=== PATIENT | male | born 1950 | race Caucasian/White ===

== ENCOUNTER → 2020-10-13 15:53 | Outpatient (CLI) | payer MEDICARE, SELFPAY ==
[2020-10-13 16:38] LABS: Add Manual Diff / Slide Review NO; Basophils Absolute Auto 0 /uL (0-100); Basophils Percent Auto 0.4 % (0-2); Eosinophils Absolute Auto 100 /uL (0-450); Eosinophils Percent Auto 0.5 % (2-4); Hematocrit 43.1 % (41-53); Hemoglobin 14.6 g/dL (13.5-17.5); Lymphocytes Absolute Auto 2600 /uL (1100-4500); Lymphocytes Percent Auto 26.7 % (25-40); Mean Corpuscular HGB Conc 33.9 % (30-36); Mean Corpuscular Hemoglobin 31.5 PG (26-34); Mean Corpuscular Volume 92.9 fL (80-100); Monocytes Absolute Auto 900 /uL (0-900); Monocytes Percent Auto 9.3 % (3-14); Neutrophils Absolute Auto 6000 /uL (1500-7000); Neutrophils Percent Auto 63.1 % (50-75); Platelet Count 290 X10^3/uL (150-400); Red Blood Cell Count 4.64 X10^6/uL (4.5-5.9); Red Cell Distribution Width 13.7 % (11.6-14.8); White Blood Cell Count 9.6 X10^3/uL (4.5-11.0)
[2020-10-13 16:46] LABS: Alanine Aminotransferase 31 IU/L (<50); Albumin 4.4 g/dL (3.5-5.0); Albumin Globulin Ratio 1.4 (1.0-2.8); Alkaline Phosphatase 83 U/L (38-126); Aspartate Aminotransferase 25 IU/L (17-59); BUN Creatinine Ratio 13.9 (6-22); Bilirubin Total 0.4 mg/dL (0.2-1.3); Blood Urea Nitrogen 14 mg/dL (9-20); Calcium 9.4 mg/dL (8.4-10.2); Carbon Dioxide 27 mmol/L (22-32); Chloride 103 mmol/L (98-107); Cholesterol 255 mg/dL (140-199); Estimated Glomerular Filt Rate > 60.0 mL/min (>60); Globulin 3.2 g/dL (1.7-4.1); Glucose 99 mg/dL (80-110); HDL Cholesterol 55 mg/dL (40-60); HEMOLYSIS < 15 (0-50); LDL Cholesterol Calculated 167 mg/dL (<100); Potassium 3.3 mmol/L (3.4-5.1); Sodium 136 mmol/L (137-145); Total Protein 7.6 g/dL (6.3-8.2); Triglycerides 163 mg/dL (35-150)
[2020-10-13 16:49] LABS: C-Reactive Protein Quant < 0.5 mg/dL (<1.0)
[2020-10-13 17:08] LABS: Erythrocyte Sedimentation Rate 1 MM/HR (0-15)
== END ==
PROVIDERS: PCP Internal Medicine; Referring Provider Internal Medicine; Visit Provider Internal Medicine
DX: E78.2 Mixed hyperlipidemia (principal); I10 Essential (primary) hypertension
CPT/HCPCS: 36415; 80053; 80061; 85025; 85651; 86140

== ENCOUNTER 2020-10-25 14:41 | Emergency (ER) | payer MEDICARE, SELFPAY ==
[2020-10-25] VITALS (9 sets, daily range): BP systolic 140–163; BP diastolic 83–87; PULSE 87–95; RESP 16–22; TEMP 36.8; O2SAT 91–96; BMI 30.7
--- NOTE | 2020-10-25 14:58 | DI.RAD.S_ITS ---
PROCEDURE: XR CHEST 2V INDICATIONS: shortness of breath TECHNIQUE: 2 views of the chest were acquired. COMPARISON: None. FINDINGS: Overlying EKG wires. Surgical changes and devices: None. Lungs and pleura: There are slightly low lung volumes causing prominence of the bronchovascular markings. No focal consolidation, pneumothorax, or pleural effusion. Mediastinum: Mediastinal contours are normal. Heart size is normal. Bones and chest wall: No suspicious bony abnormalities. Soft tissues appear unremarkable. IMPRESSION: Slight hypoinflation without other evidence to suggest an acute cardiopulmonary abnormality. Dictated by: Santiago Frias D.O. on 10/25/2020 at 14:21 Approved by: Santiago Frias D.O. on 10/25/2020 at 14:22
--- NOTE | 2020-10-25 15:13 | ED_ITS ---
HPI - SOB/Dyspnea General Chief Complaint: Shortness of Breath/Dyspnea Stated Complaint: SOB, Cough, Bloated, Weak Time Seen by Provider: 10/25/20 14:59 Source: patient Mode of arrival: Ambulatory Limitations: no limitations History of Present Illness HPI Narrative: Patient is a 70-year-old male with history of bipolar, depression, anxiety, hypertension who presents with shortness of breath. He states he has had shortness of breath and cough ongoing for number of weeks it seems to be worse when he is lying down. He feels like it was much worse last night. He does not need to sleep sitting up or with significant number of pillows. He does have some shortness of breath with exertion. He has also had slight productive cough. He denies any recent travel no exposure to COVID he says he just goes to the grocery store. He was kind enough to bring in pictures of his sputum which he took under his microscope. He has not had any fever or chills. Related Data Home Medications Medication Instructions Recorded Confirmed atorvastatin 20 mg tablet 20 mg PO DAILY 09/01/20 10/13/20 bupropion HCl 450 mg 24 hr tablet, 450 mg PO DAILY 09/01/20 10/13/20 extended release finasteride 5 mg tablet 5 mg PO DAILY 09/01/20 10/13/20 hydrochlorothiazide 25 mg tablet 25 mg PO DAILY 09/01/20 10/13/20 lamotrigine 200 mg tablet 400 mg PO DAILY 09/01/20 10/13/20 Previous Rx's Medication Instructions Recorded lorazepam 2 mg tablet 4 mg PO BEDTIME #60 tab 10/06/20 amlodipine 10 mg tablet 10 mg PO DAILY #30 tab 10/13/20 potassium chloride 10 mEq 10 meq PO DAILY #90 tab 10/14/20 tablet,extended release Allergies Allergy/AdvReac Type Severity Reaction Status Date / Time No Known Drug Allergies Allergy Verified 10/13/20 15:31 Review of Systems Review of Systems ROS Unobtainable: All systems reviewed & are unremarkable except as noted in HPI and below Constitutional Constitutional: Denies chills, Denies fever(s), Denies frequent falls, Denies lethargy and Denies weakness Cardiovascular Cardiovascular: Denies chest pain, Denies syncope, Denies pedal edema, Denies edema, Denies irregular heart rhythm, Denies leg edema, Denies lightheadedness, Denies palpitations and Denies orthopnea Respiratory Respiratory: Reports as per HPI Gastrointestinal Gastrointestinal: Denies abdominal pain, Denies change in bowel habits, Denies diarrhea, Denies nausea and Denies vomiting Musculoskeletal Musculoskeletal: Denies back pain and Denies myalgias Integumentary/Breasts Skin/Breast: Denies pruritus, Denies erythema, Denies rash and Denies wounds Neurologic Neurologic: Denies syncope, Denies frequent falls and Denies weakness Endocrine Endocrine: Denies palpitations Patient History Medical History Depression (~2003) Essential hypertension (~1999) Generalized anxiety disorder (~2003) Mixed hyperlipidemia PTSD (post-traumatic stress disorder) (~2003) Skin cancer (~1999) TIA (transient ischemic attack) (~2016) Surgical History Anesthesia S/P Achilles tendon repair (~1997) S/P appy (~1974) S/P tonsillectomy Family History Father Cancer Mother Multiple organ failure Social History Smoking Status: Never smoker Smoking Status: Never smoker alcohol intake frequency: 0-2 drinks per day Substance Use Type: does not use Exam Initial Vital Signs Initial Vital Signs: Vital Signs Blood Pressure 160/85 H 10/25/20 14:54 GENERAL: Flat affect, seems depressed HEENT: Head atraumatic,EOMI, pupils reactive, face symmetric, [moist] mucous membranes CARDIOVASCULAR: Regular rate and rhythm without murmurs, rubs or gallops. RESPIRATORY: Breath sounds equal bilaterally, no wheezes rales or rhonchi. Speaks in full sentences no sign of respiratory distress ABDOMEN: Soft, nontender. Normoactive bowel sounds all 4 quadrants. No guarding or rebound. EXTREMITIES: Normal range of motion, no clubbing or edema. Neurovascularly intact NEUROLOGICAL: Alert and oriented x4.Normal gait and speech. SKIN: Warm, dry, no laceration, no petechiae, no rashes or lesions. Course Orders Ordered: ED Orders 10/25/20 10:45 D Dimer Stat 10/25/20 14:57 COVID19 Stat Complete Blood Count AUTO DIFF Stat Comprehensive Metabolic Panel Stat Lactate (Lactic Acid) Stat NT-proBNP (BNP-Adult 18+) Stat Troponin & CK Cardiac Panel Stat 10/25/20 14:58 XR chest 2V Stat EKG-12 Lead Stat Measure peak expiratory flow ONCE RT Consult Eval and Treat Now Discontinued Medications Albuterol (Albuterol Hfa Prepack) 1 box MISC SEEINSTR ONE Stop: 10/25/20 16:00 Last Admin: 10/25/20 16:11 Dose: 1 box Documented by: SHAHNAZ Vital Signs Vital signs: Vital Signs - 8 hr 10/25/20 14:54 10/25/20 14:55 10/25/20 14:56 Temperature 98.2 F Pulse Rate 90 93 H Respiratory Rate 19 16 Blood Pressure 160/85 H 160/85 H Pulse Oximetry 95 96 10/25/20 15:00 10/25/20 15:30 10/25/20 16:00 Temperature Pulse Rate 93 H 88 88 Respiratory Rate 22 16 16 Blood Pressure 163/87 H Pulse Oximetry 93 93 93 10/25/20 16:18 10/25/20 16:30 Temperature Pulse Rate 87 Respiratory Rate 16 Blood Pressure Pulse Oximetry 96 91 MDM - SOB/Dyspnea Lab Data Attestation: I reviewed the patient's lab results. Result diagrams: 10/25/20 14:57 10/25/20 14:57 Labs: Lab Results 10/25/20 10/25/20 10/25/20 Range/Units 10:45 14:57 14:57 WBC 8.9 (4.5-11.0) X10^3/uL RBC 5.17 (4.5-5.9) X10^6/uL Hgb 16.3 (13.5-17.5) g/dL Hct 47.4 (41-53) % MCV 91.7 (80-100) fL MCH 31.4 (26-34) PG MCHC 34.3 (30-36) % RDW 13.6 (11.6-14.8) % Plt Count 258 (150-400) X10^3/uL Neut % (Auto) 76.0 H (50-75) % Lymph % (Auto) 12.1 L (25-40) % [place] % (Auto) 7.6 (3-14) % Eos % (Auto) 1.2 L (2-4) % Baso % (Auto) 3.1 H (0-2) % Neut # (Auto) 6800 (1008-2087) /uL Lymph # (Auto) 1100 (4070-4920) /uL [place] # (Auto) 700 (0-900) /uL Eos # (Auto) 100 (0-450) /uL Baso # (Auto) 300 H (0-100) /uL D-Dimer < 200 (<230) ng/mL Sodium 135 L (137-145) mmol/L Potassium 3.8 (3.4-5.1) mmol/L Chloride 102 (98-107) mmol/L Carbon Dioxide 24 (22-32) mmol/L BUN 16 (9-20) mg/dL Creatinine 1.25 (0.66-1.25) mg/dL Estimated GFR 57.4 L (>60) mL/min BUN/Creatinine Ratio 12.8 (6-22) Glucose 116 H (80-110) mg/dL Lactate (0.7-2.1) mmol/L Calcium 9.5 (8.4-10.2) mg/dL Total Bilirubin 0.6 (0.2-1.3) mg/dL AST 32 (17-59) IU/L ALT 39 (<50) IU/L Alkaline Phosphatase 113 (38-126) U/L Total Creatine Kinase (55-170) U/L CK-MB (CK-2) CK-MB (CK-2) Rel Index Troponin I (0.01-0.034) ng/mL NT-Pro-B Natriuret Pep 35 (<125) pg/mL Total Protein 8.3 H (6.3-8.2) g/dL Albumin 4.6 (3.5-5.0) g/dL Globulin 3.7 (1.7-4.1) g/dL Albumin/Globulin Ratio 1.2 (1.0-2.8) COVID-19 PCR (Negative) 10/25/20 10/25/20 10/25/20 Range/Units 14:57 14:57 14:57 WBC (4.5-11.0) X10^3/uL RBC (4.5-5.9) X10^6/uL Hgb (13.5-17.5) g/dL Hct (41-53) % MCV (80-100) fL MCH (26-34) PG MCHC (30-36) % RDW (11.6-14.8) % Plt Count (150-400) X10^3/uL Neut % (Auto) (50-75) % Lymph % (Auto) (25-40) % [place] % (Auto) (3-14) % Eos % (Auto) (2-4) % Baso % (Auto) (0-2) % Neut # (Auto) (3991-2232) /uL Lymph # (Auto) (3723-0826) /uL [place] # (Auto) (0-900) /uL Eos # (Auto) (0-450) /uL Baso # (Auto) (0-100) /uL D-Dimer (<230) ng/mL Sodium (137-145) mmol/L Potassium (3.4-5.1) mmol/L Chloride (98-107) mmol/L Carbon Dioxide (22-32) mmol/L BUN (9-20) mg/dL Creatinine (0.66-1.25) mg/dL Estimated GFR (>60) mL/min BUN/Creatinine Ratio (6-22) Glucose (80-110) mg/dL Lactate 1.5 (0.7-2.1) mmol/L Calcium (8.4-10.2) mg/dL Total Bilirubin (0.2-1.3) mg/dL AST (17-59) IU/L ALT (<50) IU/L Alkaline Phosphatase (38-126) U/L Total Creatine Kinase 44 L (55-170) U/L CK-MB (CK-2) TNP CK-MB (CK-2) Rel Index TNP Troponin I < 0.012 (0.01-0.034) ng/mL NT-Pro-B Natriuret Pep (<125) pg/mL Total Protein (6.3-8.2) g/dL Albumin (3.5-5.0) g/dL Globulin (1.7-4.1) g/dL Albumin/Globulin Ratio (1.0-2.8) COVID-19 PCR Negative (Negative) Imaging Data Chest x-ray: Radiologist's Impression: PROCEDURE: XR CHEST 2V INDICATIONS: shortness of breath TECHNIQUE: 2 views of the chest were acquired. COMPARISON: None. FINDINGS: Overlying EKG wires. Surgical changes and devices: None. Lungs and pleura: There are slightly low lung volumes causing prominence of the bronchovascular markings. No focal consolidation, pneumothorax, or pleural effusion. Mediastinum: Mediastinal contours are normal. Heart size is normal. Bones and chest wall: No suspicious bony abnormalities. Soft tissues appear unremarkable. IMPRESSION: Slight hypoinflation without other evidence to suggest an acute cardiopulmonary abnormality. Dictated by: Santiago Frias D.O. on 10/25/2020 at 14:21 ECG Data Attestation: I personally reviewed and interpreted this ECG as follows: Prior ECG tracings: not available for review Interpretation: Normal sinus rhythm rate 89 p.r. interval 156 QRS [address] changes no T-wave inversions no priors to compare MDM Narrative Medical decision making narrative: Patient has no leukocytosis or sign of pneumonia on x-ray. He has no fever at this time no antibiotics are indicated this is likely an upper respiratory viral syndrome. He is given albuterol and spacer teaching overall he is feeling much better. Troponin is negative. Discharge Plan Departure Patient Disposition: Home Clinical Impression: Acute upper respiratory infection Instructions: DI for Viral Upper Respiratory Infection -- Adult Activity Restrictions/Additional Instructions: *You have been diagnosed with upper respiratory infection *What to do: At this time no indication for antibiotics. Blood work is overall reassuring COVID is negative *Continue to take medications as directed Albuterol inhaler 1-2 puffs every 4 hours if needed for cough or shortness of breath *Follow up with your primary care provider in 2-3 days *Return to ER if you should have increasing shortness of breath, fever not controlled, chest pain or any new, worsening or concerning symptoms Prescriptions: No Action lorazepam 2 mg tablet 4 mg PO BEDTIME Qty: 60 RF: 0 potassium chloride 10 mEq tablet extended release 10 meq PO DAILY Qty: 90 RF: 3 amlodipine 10 mg tablet 10 mg PO DAILY Qty: 30 RF: 6 hydrochlorothiazide 25 mg tablet 25 mg PO DAILY RF: 0 bupropion HCl 450 mg tablet extended release 24 hr 450 mg PO DAILY RF: 0 lamotrigine 200 mg tablet 400 mg PO DAILY RF: 0 finasteride 5 mg tablet 5 mg PO DAILY RF: 0 atorvastatin 20 mg tablet 20 mg PO DAILY RF: 0 Referrals: Marcus Hayden MD [Primary Care Provider] -
[2020-10-25 15:14] LABS: Add Manual Diff / Slide Review NO; Basophils Absolute Auto 300 /uL (0-100); Basophils Percent Auto 3.1 % (0-2); Eosinophils Absolute Auto 100 /uL (0-450); Eosinophils Percent Auto 1.2 % (2-4); Hematocrit 47.4 % (41-53); Hemoglobin 16.3 g/dL (13.5-17.5); Lymphocytes Absolute Auto 1100 /uL (1100-4500); Lymphocytes Percent Auto 12.1 % (25-40); Mean Corpuscular HGB Conc 34.3 % (30-36); Mean Corpuscular Hemoglobin 31.4 PG (26-34); Mean Corpuscular Volume 91.7 fL (80-100); Monocytes Absolute Auto 700 /uL (0-900); Monocytes Percent Auto 7.6 % (3-14); Neutrophils Absolute Auto 6800 /uL (1500-7000); Platelet Count 258 X10^3/uL (150-400); Red Blood Cell Count 5.17 X10^6/uL (4.5-5.9); Red Cell Distribution Width 13.6 % (11.6-14.8); White Blood Cell Count 8.9 X10^3/uL (4.5-11.0)
[2020-10-25 15:24] LABS: Creatine Kinase 44 U/L (55-170)
[2020-10-25 15:25] LABS: Lactate (Lactic Acid) 1.5 mmol/L (0.7-2.1)
[2020-10-25 15:26] LABS: Alanine Aminotransferase 39 IU/L (<50); Albumin 4.6 g/dL (3.5-5.0); Albumin Globulin Ratio 1.2 (1.0-2.8); Alkaline Phosphatase 113 U/L (38-126); Aspartate Aminotransferase 32 IU/L (17-59); BUN Creatinine Ratio 12.8 (6-22); Bilirubin Total 0.6 mg/dL (0.2-1.3); Blood Urea Nitrogen 16 mg/dL (9-20); Calcium 9.5 mg/dL (8.4-10.2); Carbon Dioxide 24 mmol/L (22-32); Chloride 102 mmol/L (98-107); Estimated Glomerular Filt Rate 57.4 mL/min (>60); Globulin 3.7 g/dL (1.7-4.1); Glucose 116 mg/dL (80-110); HEMOLYSIS 29 (0-50); Potassium 3.8 mmol/L (3.4-5.1); Sodium 135 mmol/L (137-145); Total Protein 8.3 g/dL (6.3-8.2)
[2020-10-25 15:34] LABS: COVID19 -Nasal RAPID Negative (Negative); NT-proBNP (BNP-Adult 18+) 35 pg/mL (<125)
[2020-10-25 15:36] LABS: Troponin I < 0.012 ng/mL (0.01-0.034)
[2020-10-25 15:40] LABS: D Dimer < 200 ng/mL (<230)
[2020-10-25] MEDS: ALBUTEROL HFA PREPACK 1 BOX MISC (16:11)
== END 2020-10-25 17:25 | disposition home or self-care (01) ==
PROVIDERS: Emergency Provider Emergency Medicine; PCP Internal Medicine
DX: J06.9 Acute upper respiratory infection, unspecified (principal); R06.02 Shortness of breath; F31.9 Bipolar disorder, unspecified; F41.9 Anxiety disorder, unspecified; I10 Essential (primary) hypertension; R05 Cough
CPT/HCPCS: 36415; 71046; 80053; 82550; 83605; 83880; 84484; 85025; 85379; 87635; 93005; 93010; 94640; 99283; 99284

== ENCOUNTER → 2021-01-16 11:27 | Outpatient (CLI) | payer MEDICARE, SELFPAY ==
[2021-01-16 13:12] LABS: Free T4, Direct Thyroxine 1.27 ng/dL (0.78-2.19)
[2021-01-20 12:02] LABS: Lamotrigine Lamictal 4.7 ug/mL (2.0-20.0)
== END ==
PROVIDERS: PCP Internal Medicine; Referring Provider Psychiatry & Neurology Psychiatry; Visit Provider Psychiatry & Neurology Psychiatry
DX: F31.81 Bipolar II disorder (principal); E78.2 Mixed hyperlipidemia
CPT/HCPCS: 36415; 80175; 84439; 84443